=== PATIENT | male | born 1930 | race Caucasian/White ===

== ENCOUNTER 2018-11-14 06:53 | Inpatient (IN) ==
[2018-11-09 14:46] LABS: Basophils # 0.1 10*3/uL (0.0-0.2); Basophils % 0.7 % (0.0-0.8); Eosinophils # 0.3 10*3/uL (0.0-0.87); Eosinophils % 3.8 % (0.00-10.9); Hematocrit 36.6 VOL% (42.0-52.0); Hemoglobin 11.9 GM/DL (14.0-18.0); Immature Granulocytes % 0.3 %; Immature Granulocytes Absolute 0.02 #; Lymphocytes # 1.8 10*3/uL (1.4-4.0); Lymphocytes % 24.9 % (21.2-54.2); Mean Corpuscular HGB Conc 32.5 GM/DL (32-36); Mean Corpuscular Hemoglobin 32 PG (27-34); Mean Corpuscular Volume 98.4 FL (87-102); Mean Platelet Volume 10.8 FL (9.6-12.0); Monocytes # 0.8 10*3/uL (0.11-0.8); Monocytes % 11.4 % (1.7-12.7); Neutrophils # 4.3 10*3/uL (1.4-7.4); Neutrophils % 58.9 % (38.7-73.9); Platelet Count 154 T/CUMM (130-400); Red Blood Count 3.72 MC/CUMM (3.8-5.5); Red Cell Distribution Width 12.6 % (9.3-17.3); White Blood Count 7.2 T/CUMM (4-12)
[2018-11-09 15:11] LABS: Alanine Aminotransferase 18 U/L (16-61); Albumin 3.5 G/DL (3.4-5.0); Alkaline Phosphatase 69 U/L (45-117); Aspartate Amino Transferase 14 U/L (0-37); Bilirubin,Total < 0.39 MG/DL (0.2-1.0); Blood Urea Nitrogen 31 MG/DL (7-18); Calcium 8.6 MG/DL (8.5-10.1); Glucose 108 MG/DL (74-106); Osmolality,Calculated 286.4 MOS/KG (273-304); Potassium 4.4 MMOL/L (3.5-5.1); Sodium 140 MMOL/L (136-145); Total Protein 7.2 G/DL (6.4-8.3)
[~2018-11-14 06:53] MED LIST: LACTATED RINGERS 1,000 ML IV SCH; ceFAZolin 1,000 MG VIAL ONE; ceFAZolin 1,000 MG in SYRINGE 1 EACH IV ONE
[2018-11-14] MEDS ORDERED: DEXTROSE 50% 25 GM/50 ML VIAL IV PRN (09:41)
[2018-11-14] MEDS ORDERED: GLUCAGON 1 MG VIAL IM PRN (09:41)
[2018-11-14] MEDS ORDERED: HYDROmorphone 2 MG/1 ML VIAL IV PRN ×3 (09:41→10:03)
[2018-11-14] MEDS ORDERED: NALOXONE 0.4 MG/ML VIAL IV PRN (09:41)
[2018-11-14] MEDS ORDERED: ONDANSETRON 4 MG/2 ML VIAL IV PRN ×2 (09:41→10:03)
[2018-11-14] MEDS ORDERED: PROMETHAZINE 25 MG/1 ML VIAL IM PRN (09:41)
[2018-11-14] MEDS ORDERED: NITROGLYCERIN SL 0.4 MG TABLET SL PRN (09:45)
[2018-11-14] MEDS ORDERED: FUROSEMIDE 20 MG TABLET PO PRN (09:45)
[2018-11-14] MEDS ORDERED: HEPARIN 10,000 UNIT/10 ML VIAL ONE (10:05)
[2018-11-14] MEDS ORDERED: SEVOFLURANE 1 UNIT/15 MINUTE INH ONE (10:05)
[2018-11-14] MEDS ORDERED: PHENYLEPHRINE DRIP 20 MG/250 ML PREMIX IV ONE (10:05)
[2018-11-14] MEDS ORDERED: ePHEDrine 50 MG/ML AMP ONE (10:06)
[2018-11-14] MEDS ORDERED: fentaNYL 100 MCG/2 ML VIAL ONE (10:06)
[2018-11-14] MEDS ORDERED: ETOMIDATE 40 MG/20 ML VIAL IV ONE (10:06)
[2018-11-14] MEDS ORDERED: ROCURONIUM 100 MG/10 ML VIAL IV ONE (10:07)
[2018-11-14] MEDS ORDERED: GLYCOPYRROLATE 0.4 MG/2 ML VIAL ONE (10:07)
[2018-11-14] MEDS ORDERED: PROTAMINE SULFATE 50 MG/5 ML VIAL IV ONE (10:07)
[2018-11-14] MEDS ORDERED: NEOSTIGMINE 10 MG/10 ML VIAL ONE (10:07)
[2018-11-14] MEDS: LACTATED RINGERS 1,000 ML IV SCH ×2 (11:30→23:06)
[2018-11-14] MEDS: NITROPRUSSIDE 100 MG in DEXTROSE 5% 250 ML IV SCH (12:58)
[2018-11-14] MEDS: PHENYLEPHRINE DRIP 40 MG/250 ML PREMIX IV SCH (13:17)
[2018-11-14] MEDS: RANOLAZINE 500 MG TABLET PO SCH (20:43)
[2018-11-14] MEDS ORDERED: SIMVASTATIN 20 MG TABLET PO SCH (21:00)
[2018-11-14] MEDS ORDERED: LEVOTHYROXINE 50 MCG TABLET PO SCH (21:00)
[2018-11-14] MEDS ORDERED: TERAZOSIN 5 MG CAPSULE PO SCH (21:00)
[2018-11-14] MEDS ORDERED: PANTOPRAZOLE 20 MG TABLET PO SCH (21:00)
[2018-11-14] MEDS ORDERED: DORZOLAMIDE 2% OPH SOLN 10 ML BOTTLE RIGHT EYE SCH (21:00)
[2018-11-15] MEDS ORDERED: CLOPIDOGREL 75 MG TABLET PO SCH (09:00)
[2018-11-15] MEDS ORDERED: ISOSORBIDE MONONITRATE 60 MG TABLET PO SCH (09:00)
[2018-11-15] MEDS ORDERED: ASPIRIN EC 81 MG TABLET PO SCH (09:00)
[2018-11-15] MEDS: RANOLAZINE 500 MG TABLET PO SCH (09:36)
[2018-11-15] MEDS: PHENYLEPHRINE DRIP 40 MG/250 ML PREMIX IV SCH (10:47)
[2018-11-15] MEDS: LACTATED RINGERS 1,000 ML IV SCH (10:49)
[2018-11-15] MEDS: NITROPRUSSIDE 100 MG in DEXTROSE 5% 250 ML IV SCH (10:49)
[2018-11-15 11:14] VITALS: BP 125/33
== END 2018-11-15 17:20 | disposition home or self-care (01) | DRG 39 ==
LOC: N.SDSINP 06:53 → N.CC 10:49
PROVIDERS: ADMIT Surgery; ATTEND Surgery

== ENCOUNTER 2020-11-20 05:53 | Inpatient (IN) ==
[2020-11-20] MEDS ORDERED: diphenhydrAMINE CAP 50 MG CAPSULE PO ONE (06:00)
[2020-11-20] MEDS ORDERED: POTASSIUM CHLORIDE RIDER 10 MEQ in PREMIX 1 EACH IV PRN (06:00)
[2020-11-20] MEDS ORDERED: DIAZEPAM 5 MG TABLET PO ONE (06:00)
[2020-11-20] MEDS ORDERED: ASPIRIN 325 MG TABLET PO ONE (06:00)
[2020-11-20] MEDS ORDERED: MAGNESIUM SULF RIDER 2 GM in PREMIX 1 EACH IV PRN (06:00)
[2020-11-20 06:48] LABS: Basophils # 0.1 10*3/uL (0.0-0.2); Basophils % 0.5 % (0.0-0.8); Eosinophils # 0.2 10*3/uL (0.0-0.87); Eosinophils % 2.5 % (0.00-10.9); Hematocrit 37.6 VOL% (42.0-52.0); Immature Granulocytes % 0.3 %; Immature Granulocytes Absolute 0.03 #; Lymphocytes # 1.6 10*3/uL (1.4-4.0); Lymphocytes % 17.2 % (21.2-54.2); Mean Corpuscular HGB Conc 31.9 GM/DL (32-36); Mean Corpuscular Volume 99.7 FL (87-102); Mean Platelet Volume 11.1 FL (9.6-12.0); Monocytes % 13.1 % (1.7-12.7); Neutrophils % 66.4 % (38.7-73.9); Platelet Count 149 T/CUMM (130-400); Red Blood Count 3.77 MC/CUMM (3.8-5.5); Red Cell Distribution Width 12.9 % (9.3-17.3); White Blood Count 9.1 T/CUMM (4-12)
[2020-11-20] MEDS ORDERED: HEPARIN/NACL 0.9% 2 UNITS/ML 1,000 ML IV ONE (06:53)
[2020-11-20 06:59] VITALS: BP 119/66
[2020-11-20] MEDS ORDERED: ASPIRIN 325 MG TABLET ONE (07:00)
[2020-11-20] MEDS ORDERED: DIAZEPAM 5 MG TABLET ONE (07:00)
[2020-11-20] MEDS ORDERED: diphenhydrAMINE CAP 50 MG CAPSULE ONE (07:00)
[2020-11-20] MEDS: SODIUM CHLORIDE 0.9% 1,000 ML IV SCH ×2 (07:04→19:37)
[2020-11-20] MEDS ORDERED: LIDOCAINE 1% 20 ML VIAL ONE (07:10)
[2020-11-20] MEDS ORDERED: MIDAZOLAM 2 MG/2 ML VIAL ONE (07:18)
[2020-11-20] MEDS ORDERED: NITROGLYCERIN DRIP 50 MG/250 ML BOTTLE IV ONE (07:18)
[2020-11-20] MEDS ORDERED: fentaNYL 100 MCG/2 ML VIAL ONE (07:19)
[2020-11-20] MEDS ORDERED: VERAPAMIL 5 MG/2 ML VIAL ONE (07:19)
[2020-11-20 07:20] LABS: Osmolality,Calculated 276.8 MOS/KG (273-304)
[2020-11-20] MEDS ORDERED: HEPARIN 5,000 UNIT/1 ML VIAL ONE ×2 (07:34→08:09)
[2020-11-20] MEDS ORDERED: DOPamine 800 MG/250 ML PREMIX IV ONE (07:41)
[2020-11-20] MEDS ORDERED: NITROPRUSSIDE 50 MG/2 ML VIAL ONE ×2 (08:00)
[2020-11-20] MEDS ORDERED: HEPARIN/NACL 0.9% 2 UNITS/ML 500 ML IV ONE (08:07)
[2020-11-20] MEDS ORDERED: TICAGRELOR 90 MG TABLET ONE (08:27)
[2020-11-20] MEDS ORDERED: FUROSEMIDE 40 MG/4 ML VIAL ONE (08:34)
[2020-11-20] MEDS ORDERED: ACETAMINOPHEN 325 MG TABLET PO PRN (08:46)
[2020-11-20] MEDS ORDERED: ONDANSETRON 4 MG/2 ML VIAL IV PRN (08:46)
[2020-11-20] MEDS ORDERED: NITROGLYCERIN SL 0.4 MG TABLET SL PRN (08:46)
[2020-11-20] MEDS ORDERED: ZALEPLON 5 MG CAPSULE PO PRN (08:46)
[2020-11-20] MEDS: ASPIRIN EC 81 MG TABLET PO SCH (12:35)
[2020-11-20] MEDS: ISOSORBIDE MONONITRATE 60 MG TABLET PO SCH (12:35)
[2020-11-20] MEDS: TICAGRELOR 90 MG TABLET PO SCH ×2 (12:35→21:21)
[2020-11-20] MEDS: DORZOLAMIDE 2% OPH SOLN 10 ML BOTTLE RIGHT EYE SCH ×2 (12:36→21:25)
[2020-11-20] MEDS ORDERED: FUROSEMIDE 40 MG/4 ML VIAL IV ONE (20:00)
[2020-11-20] MEDS ORDERED: amLODIPine 5 MG TABLET PO SCH (21:00)
[2020-11-20] MEDS: LEVOTHYROXINE 50 MCG TABLET PO SCH (21:21)
[2020-11-20] MEDS: TERAZOSIN 5 MG CAPSULE PO SCH (21:21)
[2020-11-20] MEDS: OMEPRAZOLE ODT 20 MG TABLET PO SCH (21:21)
[2020-11-20] MEDS: RANOLAZINE 500 MG TABLET PO SCH (21:22)
[2020-11-20] MEDS: ROSUVASTATIN 20 MG TABLET PO SCH (21:22)
[2020-11-21 04:21] LABS: Basophils % 0.3 % (0.0-0.8); Eosinophils % 0.3 % (0.00-10.9); Hematocrit 38.1 VOL% (42.0-52.0); Hemoglobin 12.5 GM/DL (14.0-18.0); Immature Granulocytes % 0.4 %; Immature Granulocytes Absolute 0.04 #; Lymphocytes % 8.6 % (21.2-54.2); Mean Corpuscular HGB Conc 32.8 GM/DL (32-36); Mean Corpuscular Volume 99.2 FL (87-102); Mean Platelet Volume 11.4 FL (9.6-12.0); Monocytes % 11.1 % (1.7-12.7); Neutrophils % 79.3 % (38.7-73.9); Platelet Count 160 T/CUMM (130-400); Red Blood Count 3.84 MC/CUMM (3.8-5.5); Red Cell Distribution Width 13.2 % (9.3-17.3); White Blood Count 11.1 T/CUMM (4-12)
[2020-11-21 04:40] LABS: Calcium 8.9 MG/DL (8.5-10.1); Osmolality,Calculated 284.7 MOS/KG (273-304); Potassium 3.8 MMOL/L (3.5-5.1)
[2020-11-21] MEDS ORDERED: FUROSEMIDE 40 MG TABLET PO SCH (08:00)
[2020-11-21] MEDS: SPIRONOLACTONE 25 MG TABLET PO SCH (08:23)
[2020-11-21] MEDS: ASPIRIN EC 81 MG TABLET PO SCH (08:23)
[2020-11-21] MEDS: TICAGRELOR 90 MG TABLET PO SCH ×2 (08:24→21:05)
[2020-11-21] MEDS: FUROSEMIDE 40 MG TABLET PO SCH (08:24)
[2020-11-21] MEDS: ISOSORBIDE MONONITRATE 60 MG TABLET PO SCH (08:24)
[2020-11-21] MEDS: LOSARTAN 25 MG TABLET PO SCH (08:24)
[2020-11-21] MEDS: RANOLAZINE 500 MG TABLET PO SCH ×2 (08:25→21:05)
[2020-11-21] MEDS: DORZOLAMIDE 2% OPH SOLN 10 ML BOTTLE RIGHT EYE SCH ×2 (08:25→20:55)
[2020-11-21] MEDS: TERAZOSIN 5 MG CAPSULE PO SCH (21:05)
[2020-11-21] MEDS: OMEPRAZOLE ODT 20 MG TABLET PO SCH (21:05)
[2020-11-21] MEDS: ROSUVASTATIN 20 MG TABLET PO SCH (21:05)
[2020-11-21] MEDS: LEVOTHYROXINE 50 MCG TABLET PO SCH (21:06)
[2020-11-22 06:38] LABS: Basophils % 0.3 % (0.0-0.8); Eosinophils # 0.2 10*3/uL (0.0-0.87); Eosinophils % 2.2 % (0.00-10.9); Hematocrit 34.3 VOL% (42.0-52.0); Hemoglobin 11.6 GM/DL (14.0-18.0); Immature Granulocytes % 0.4 %; Immature Granulocytes Absolute 0.04 #; Lymphocytes # 1.5 10*3/uL (1.4-4.0); Lymphocytes % 15.9 % (21.2-54.2); Mean Corpuscular HGB Conc 33.8 GM/DL (32-36); Mean Corpuscular Volume 97.2 FL (87-102); Mean Platelet Volume 11.8 FL (9.6-12.0); Monocytes % 14.3 % (1.7-12.7); Neutrophils % 66.9 % (38.7-73.9); Platelet Count 147 T/CUMM (130-400); Red Blood Count 3.53 MC/CUMM (3.8-5.5); Red Cell Distribution Width 13.2 % (9.3-17.3); White Blood Count 9.6 T/CUMM (4-12)
[2020-11-22 06:51] LABS: Calcium 8.9 MG/DL (8.5-10.1); Potassium 3.7 MMOL/L (3.5-5.1)
[2020-11-22] MEDS: FUROSEMIDE 40 MG TABLET PO SCH (08:29)
[2020-11-22] MEDS: LOSARTAN 25 MG TABLET PO SCH (08:29)
[2020-11-22] MEDS: SPIRONOLACTONE 25 MG TABLET PO SCH (08:29)
[2020-11-22] MEDS: TICAGRELOR 90 MG TABLET PO SCH (08:29)
[2020-11-22] MEDS: ASPIRIN EC 81 MG TABLET PO SCH (08:29)
[2020-11-22] MEDS: ISOSORBIDE MONONITRATE 60 MG TABLET PO SCH (08:29)
[2020-11-22] MEDS: DORZOLAMIDE 2% OPH SOLN 10 ML BOTTLE RIGHT EYE SCH (08:29)
[2020-11-22] MEDS: RANOLAZINE 500 MG TABLET PO SCH (08:29)
== END 2020-11-22 10:55 | disposition home or self-care (01) | DRG 247 ==
LOC: N.CL 05:53 → N.ICU 10:07
PROVIDERS: ADMIT Internal Medicine Cardiovascular Disease; ATTEND Internal Medicine Cardiovascular Disease